=== PATIENT | male | born 1980 | race Caucasian/White ===

== ENCOUNTER → 2019-06-17 | Outpatient (CLI) | payer BC ==
[~2019-06-17] MED LIST: GASTROGRAFIN SOLUTION 30ML (Q9963) As Ordered ONE; ISOVUE-370 76% 100ML VIAL (Q9967) As Ordered ONE
--- NOTE | 2019-06-17 15:29 | REP ---
Clinical: Left upper quadrant pain. Technique: Axial contrast enhanced images from the lung bases to the pubic symphysis using oral (per protocol) and 100 ml Isovue 370 intravenous contrast material with coronal and sagittal re-formations. Comparison: None. Findings: Liver, spleen, pancreas, gallbladder, bilateral adrenal glands and right kidney are normal. Left kidney appears atrophic. The enteric system is without obstruction or acute inflammatory process. Normal terminal ileum and appendix are identified in the right lower quadrant. Pelvis demonstrates partially collapsed normal bladder and age appropriate prostate/seminal vesicles. No ascites. No free air. No adenopathy. Abdominal aorta without aneurysm or dissection. Musculoskeletal structures are intact and without acute osseous abnormality. Lung bases are clear. Impression: Nonspecific atrophic appearance to the left kidney. No acute abdominopelvic pathology appreciated. Electronically Signed by Adriano Ballesteros MD 06/17/2019 03:21 P
== END ==
LOC: M RAD 13:26
PROVIDERS: ATTEND Family Medicine
DX: R10.12 Left upper quadrant pain (principal)
CPT/HCPCS: 74178; Q9963; Q9967

== ENCOUNTER → 2019-06-24 | Outpatient (CLI) | payer BC ==
--- NOTE | 2019-06-24 13:45 | REP ---
RENAL ULTRASOUND: Real-time sonographic evaluation of the kidneys performed. The left kidney is atrophic with cortical thinning. The kidneys are normal in echotexture. Right kidney measures 12.5 x 6.4 x 7.1 cm and left kidney 8.5 x 3.7 x 4.2 cm. There is no hydronephrosis bilaterally. No renal mass is seen. Urinary bladder is not well distended. There are bilateral ureteral jets in the urinary bladder with Doppler color evaluation. IMPRESSION: Mild left renal atrophy. No hydronephrosis. Electronically Signed by Robin Tian MD 06/24/2019 02:02 P
== END ==
LOC: M RAD 12:08
PROVIDERS: ATTEND Family Medicine
DX: S37.002A Unspecified injury of left kidney, initial encounter (principal); W18.30XA Fall on same level, unspecified, initial encounter; Y92.9 Unspecified place or not applicable

== ENCOUNTER 2020-09-15 11:38 | Emergency (ER) | payer BC ==
[~2020-09-15] VITALS: Ht 175.3 cm; Wt 96.6 kg
[2020-09-15 13:49] LABS: BASO % 0.2 % (0.0-1.0); EOS # 0.1 10^3/uL (0.0-0.5); EOS % 0.6 % (0.0-3.0); HEMATOCRIT 44.3 % (42.0-52.0); LYMPH # 1.5 10^3/uL (1.5-5.0); LYMPH % 18.6 % (24.0-44.0); MEAN CORPUSCULAR HEMOGLOBIN 29.4 pg (27.0-33.0); MEAN CORPUSCULAR HGB CONC 33.9 g/dl (32.0-36.5); MEAN CORPUSCULAR VOLUME 86.9 fl (80.0-96.0); MONO # 0.4 10^3/uL (0.0-0.8); NEUTROPHILS # 6.1 10^3/uL (1.5-8.5); NEUTROPHILS % 75.2 % (36.0-66.0); PLATELET COUNT, AUTOMATED 179 10^3/uL (150-450); WHITE BLOOD COUNT 8.1 10^3/uL (4.0-10.0)
--- NOTE | 2020-09-15 13:57 | REP ---
INDICATION: dizziness. COMPARISON: None. TECHNIQUE: CT brain performed in the axial plane. Coronal reconstruction images are performed. FINDINGS: The ventricles are normal in size and position.. There is no midline shift or mass effect. Tian-white differentiation is well maintained. There is no acute intracranial hemorrhage or extra-axial fluid collection. Bone window examination is unremarkable. The visualized mastoid air cells and paranasal sinuses are clear. IMPRESSION: Negative noncontrast CT brain. <Electronically signed by Robin Tian > 09/15/20 [id number]
[2020-09-15 14:15] LABS: ALT/SGPT 28 U/L (12-78); BILIRUBIN,TOTAL 0.6 MG/DL (0.2-1.0); BLOOD UREA NITROGEN 17 MG/DL (7-18); CARBON DIOXIDE LEVEL 27 MEQ/L (21-32); CHLORIDE LEVEL 108 MEQ/L (98-107); CK-MB VALUE MASS 2.3 NG/ML (<3.6); CPK CREATINE PHOSPHOKINASE 218 U/L (39-308); CREATININE FOR GFR 0.86 MG/DL (0.70-1.30); GLOMERULAR FILTRATION RATE > 60.0 (>60); GLUCOSE, FASTING 95 MG/DL (70-100); MB/CK RELATIVE INDEX 1.06 (< OR =4); POTASSIUM SERUM 4.1 MEQ/L (3.5-5.1); SODIUM LEVEL 141 MEQ/L (136-145); TOTAL PROTEIN 7.2 GM/DL (6.4-8.2); TROPONIN I < 0.02 NG/ML (< 0.10)
[2020-09-15 14:52] LABS: HEMOGLOBIN A1c 5.1 %
[2020-09-15 15:05] VITALS: BP 142/83
--- NOTE | 2020-09-15 21:07 | ECGEPIP ---
[facility] - ED Test Date: 2020-09-15 Pat Name: JADA BORRERO Department: Room: - Gender: Male Campus Administrator: FABRICE : [id number] Requested By: Phan Mora Order Number: [id number] Reading MD: Phan Franco Measurements Intervals [place] Rate: 70 P: 66 NE: 166 QRS: 50 QRSD: 88 T: 24 QT: 394 QTc: 425 Interpretive Statements Normal sinus rhythm NO PRIORS FOR COMPARISON Electronically Signed on 09-15-2020 21:07:04 EDT by Phan Franco
== END 2020-09-15 15:05 | disposition home or self-care (01) ==
LOC: M ED 11:38
DX: R03.0 Elevated blood-pressure reading, without diagnosis of hypertension (principal); R42 Dizziness and giddiness

== ENCOUNTER → 2023-03-15 | Outpatient (CLI) | payer BC ==
[~2023-03-15] MED LIST changes: -GASTROGRAFIN SOLUTION 30ML (Q9963) As Ordered ONE; +GASTROGRAFIN SOLUTION 30ML As Ordered ONE; -ISOVUE-370 76% 100ML VIAL (Q9967) As Ordered ONE; +ISOVUE-370 76% 100ML VIAL As Ordered ONE
== END ==
LOC: M RAD 09:02
PROVIDERS: ATTEND Family Medicine
DX: R10.12 Left upper quadrant pain (principal)
CPT/HCPCS: 74177; Q9963; Q9967